=== PATIENT | female | born 1935 | race Caucasian/White ===

== ENCOUNTER 2017-01-12 11:15 | Day surgery (SDC) | payer MEDICARE, OTHER ==
[~2017-01-12] VITALS: Ht 157.5 cm; Wt 80.7 kg
[~2017-01-12 11:15] MED LIST: ASPI-956 PO; ATOR20TA PO; CHOL200047 PO; FOLI0.8T PO; METO25TA99 PO; SYN.112T PO; Sodium Chloride LOK Flush 10 mL Syringe IV PRN; [UNRECOGNIZED DRUG - CODE] PO; fentaNYL-PF 50 mCg/mL 2 mL Inj IVPUSH PRN
[2017-01-12] MEDS ORDERED: fentaNYL-PF 50 mCg/mL 2 mL Inj IVPUSH ONE (11:16)
[2017-01-12 11:39] VITALS: BP 162/89; PULSE 80; RESP 16; O2SAT 99
[2017-01-12] MEDS: 0.9% Sodium Chloride 1,000 ML IV SCH ×2 (13:37→14:53)
[2017-01-12 15:13] VITALS: BP 152/74; PULSE 73; RESP 14; O2SAT 97
[2017-01-12 15:23] VITALS: BP 106/88; PULSE 72; RESP 16; O2SAT 100
[2017-01-12 15:33] VITALS: BP 143/88; PULSE 73; RESP 16; O2SAT 100
[2017-01-12 15:43] VITALS: BP 143/88; PULSE 74; RESP 16; O2SAT 100
--- NOTE | 2017-01-13 07:49 | ENDO ---
[address] [address] ENDOSCOPY PROCEDURE PATIENT: MIKE CABEZAS : 1935 MR#: [id number] ADMIT: 01/12/2017 JOB ID: [id number] DATE OF SERVICE: 01/12/2017 TYPE OF OPERATION: Esophagogastroduodenoscopy with biopsy. PREOPERATIVE DIAGNOSIS(ES): 1. Dysphagia. 2. Gastroesophageal reflux disease. POSTOPERATIVE DIAGNOSIS(ES): 1. Widely open patent Schatzki ring, status post biopsy. 2. Large hiatal hernia from 35-40 cm in size. ANESTHESIA: 1. Fentanyl 75 mcg. 2. Versed 3 mg IV administered. COMPLICATION: None. BLOOD LOSS: Minimal. DESCRIPTION OF PROCEDURE: After risks and benefits explained to the patient, the informed consent was obtained. After anesthesia administered, upper endoscope was inserted in the mouth, intubating to the esophagus, stomach, second portion of duodenum. Mucosa was carefully examined. After procedure was done, the scope was withdrawn and the procedure terminated. FINDINGS: Upon inspection of the esophagus, there was a widely open patent Schatzki ring of the distal esophagus. Z-line located 35 cm from incisors. Upon entering the stomach, there were no masses, ulcers, lesions or fissures seen. Retroflexion showed a very large hiatal hernia, 5 cm from 35-40 cm. The duodenal bulb, first and second portion, normal. Biopsies taken from the antrum, body, mid and distal esophagus. IMPRESSION: 1. A 5 cm large hiatal hernia. 2. Widely open patent Schatzki ring, status post biopsy. RECOMMENDATION: 1. Await pathology results. 2. Protonix 40 mg by mouth twice a day. 3. Follow up with the GI [facility] with Harriet Dominguez.
--- NOTE | 2017-01-16 13:37 | PATH ---
SURGICAL PATHOLOGY Attending Physician:Ernesto Roman MD CASE STATUS: Signed Out PATIENT NAME: MIKE CABEZAS PID: [id number] : 1935 DATE COLLECTED:01/12/2017 00:00 SPECIMEN: 1: Stomach, Antrum, Biopsy 2: Gastric, Biopsy 3: Esophagus, Biopsy 4: Esophagus, Biopsy CLINICAL HISTORY: 1). ANTRUM BIOPSY 2). GASTRIC BODY BIOPSY 3). DISTAL ESOPHAGEAL BIOPSY 4). MID ESOPHAGEAL BIOPSY FINAL DIAGNOSIS: 1. Antrum Biopsy: Gastric antral mucosa with mid chronic gastritis. Negative for H. pyori organisms by H&E stain. Immunohistochemistry studies pending; results will be reported as an addendum. Negative for intestinal metaplasia, dysplasia or malignancy. 2. Gastric Body Biopsy: Portions of gastric body-type mucosa with mild chronic gastritis. No definite H. pylori organisms identified by H&E stain. Immunohistochemistry studies pending; results will be reported as an addendum. Negative for intestinal metaplasia, dysplasia or malignancy. 3. Distal Esophagus Biopsy: Squamocolumnar junctional mucosa with foci of specialized intestinal metaplasia, consistent with Yanes's esophagus. Negative for dysplasia and malignancy. 4. Mid Esophageal Biopsy: Portions of squamous mucosa with no diagnostic abnormality. Intraepithelial eosinophils are not increased. Negative for dysplasia and malignancy. ICD10: K22.7 GROSS DESCRIPTION: The specimen is received in four formalin filled containers labeled with the patient's name. 1). The specimen is sublabeled "antrum" and consists of a 0.3 x 0.2 x 0.2 CM portion of tissue which is entirely submitted in cassette 1A. 2). The specimen is sublabeled "gastric body" and consists of 2 portions of tissue which aggregate to 0.4 x 0.3 x 0.2 CM. The specimen is entirely submitted in cassette 2A. 3). The specimen is sublabeled "distal esophageal" and consists of 3 tiny portions of tissue which aggregate to 0.2 x 0.2 x 0.2 CM. 4). The specimen is sublabeled "mid esophageal" and consists of 2 portions of tissue which aggregate to 0.3 x 0.3 x 0.2 CM. The specimen is entirely submitted in cassette 4A. 01/13/2017 [facility] ICD-9 CODES: CPT CODES: 1: 95274, 19139 2: 04612, 14139 3: 55965 4: 53157 PROCEDURE/ADDENDA: Addendum SPI Addendum Diagnosis 1: Antrum Biopsy: Negative for H. pylori organisms by immunohistochemistry studies. 2: Gastric Body Biopsy: Negative for H. pylori organisms by immunohistochemistry studies. Addendum Comment IMMUNOHISTOCHEMISTRY RESULTS: Slides 1A and 2A: H. pylori negative. Electronically Signed Out Debbi Joaquin MD Electronically Signed Out Debbi Joaquin MD [facility] [address], [place] [address] Technical component performed at [facility], [facility] [address], [place], [address]
== END 2017-01-12 23:59 | disposition home or self-care (01) ==
LOC: END 11:15
PROVIDERS: ATTEND Internal Medicine Gastroenterology
DX: K22.2 Esophageal obstruction (principal); K21.9 Gastro-esophageal reflux disease without esophagitis; K44.9 Diaphragmatic hernia without obstruction or gangrene; R13.14 Dysphagia, pharyngoesophageal phase; K29.50 Unspecified chronic gastritis without bleeding
CPT/HCPCS: 43239; 88305; 88342; G0500; J2250; J3010; J7030